=== PATIENT | male | born 2000 | race Caucasian/White ===

== ENCOUNTER 2023-10-03 13:34 | Emergency (ER) | payer OTHER, SELFPAY ==
[2023-10-03 13:52] VITALS: BP 128/76; PULSE 65; RESP 18; TEMP 36.2; O2SAT 99; BMI 37.9
--- NOTE | 2023-10-03 13:52 | ED.HA ---
HPI - Headache General Chief Complaint: Headache Stated Complaint: headache unable to function Time Seen by Provider: 10/03/23 14:05 Source: patient Mode of arrival: ambulatory Limitations: no limitations History of Present Illness HPI Narrative: 23 year old male without any significant past medical history presents to the emergency department for complaints of headache since July that is worse today. Reports pain in bilateral temples and sinuses. Describes pain as burning, throbbing, and a stabbing sensation in nostrils. Has been using an Neti-pot which helps. Related Data Previous Rx's ?Medication ?Instructions ?Recorded mometasone 50 mcg/actuation nasal 2 spray intranasal DAILY #17 grams 10/03/23 spray oxymetazoline 0.05 % nasal spray 2 spray intranasal Q12H PRN nasal 10/03/23 congestion 3 days #22 mL Allergies Allergy/AdvReac Type Severity Reaction Status Date / Time Penicillins [PCN] Allergy Unknown Verified 10/03/23 13:54 Review of Systems Review of Systems: Yes all other systems are reviewed and are negative [facility] Social History Social History Advance Directives: No Physical Exam Vital Signs: Vital Signs: Last Vital Signs Temp 97.1 F 10/03/23 14:09 Pulse 65 10/03/23 14:09 Resp 18 10/03/23 14:09 BP 128/76 10/03/23 14:09 Pulse Ox 99 10/03/23 14:09 O2 Del Method Room Air 10/03/23 14:09 BMI result Body Mass Index 37.9 Nursing notes and vital signs reviewed. GENERAL APPEARANCE: A&0 x 4, generally well appearing, no acute distress HENMT: Normal to inspection, atraumatic, face symmetrical. Normal external ears, nose, and oropharynx clear. EYE: PERRLA, EOM intact, structures appear normal NECK: Supple without stiffness or restricted ROM. HEART: Normal rate and regular rhythm, normal S1/S2, no M/R/G LUNGS: LS CTA, moving air well. Able to speak in complete sentences. No crackles, wheezes, or rhonchi auscultated BACK: No CVAT, no obvious deformity EXTREMITIES: Moving all extremities without difficulty. Normal capillary refill. NEUROLOGICAL: Alert and oriented, moving all 4 extremities with equal strength. CN not formally tested but appearing grossly intact. Observed to ambulate with normal gait. Cognition normal SKIN: Warm and dry without any lesions, rash, or visible sores Medical Decision Making Medical Decision Making MDM Narrative: Old records reviewed for previous imaging, lab studies, ECGs, and notes. Patient was assessed the emergency department with no acute distress or toxicity noted. Pt's symptoms appear consistent with headache from sinusitis. Afrin and flonase sent to pt's preferred pharmacy to further management and follow up with ENT. Patient is safe for discharge at this time with plan for [id number] Tylenol and/or NSAID such as ibuprofen or naproxen for fever/discomfort with dosing as per packaging. HPI, PE, diagnostics, and plan discussed with patient and family with no unanswered questions at this time. Strict return precautions given to return to the emergency department with new, worsening, or concerning emergent symptoms. Recommended to follow-up with there primary care provider in 24-48 hours for further treatment and management. Differential Diagnosis Differential Diagnoses: The differential diagnosis associated with the presentation includes but not limited to headache, cva, hemorrhage, tmj, trigeminal neuralgia, sinusitis, sinus infection. Discharge Plan Discharge Clinical Impression: Headache, Sinusitis Patient Disposition: Home, Self-Care Instructions: Sinusitis (ED), General Headache (ED) Prescriptions: New mometasone 50 mcg/actuation spray,non-aerosol 2 spray intranasal DAILY Qty: 17 0RF Rx Instructions: administer into each nostril oxymetazoline 0.05 % spray,non-aerosol 2 spray intranasal Q12H PRN (Reason: nasal congestion) 3 Days Qty: 22 0RF Rx Instructions: Do not use more than 3 days Referrals: Tal Sidhu [Physician] - Ian Vallejo MD [Physician] - Interventions: ED Discharge Assessment Last Done: 10/03/23 14:09 Discharge Date/Time: 10/03/23 14:10 Print Language: Emirati
[2023-10-03 14:09] VITALS: BP 128/76; PULSE 65; RESP 18; TEMP 36.2; O2SAT 99
== END 2023-10-03 14:10 | disposition home or self-care (01) ==
PROVIDERS: Emergency Provider Emergency Medicine; PCP Family Medicine
DX: J32.9 Chronic sinusitis, unspecified (principal); R51.9 Headache, unspecified
CPT/HCPCS: 99282; 99283

== ENCOUNTER 2024-01-21 09:32 | Outpatient (AMB) | payer OTHER, SELFPAY ==
--- NOTE | 2024-01-21 09:48 | MHC.PC.OV ---
Vital Signs 01/21/24 09:58 Height 5 ft 5 in Weight 224 lb 2 oz BMI 37.3 BP 110/76 Blood Pressure Location Rt brachial Position Sitting Respiration 16 Pulse 77 Pulse Source Pulse Oximeter Temp 98 F Temp Source Tympanic Pulse Oximetry (%) 97 Oxygen Delivery Method Room Air Intake Visit Reasons: Physical Intake Note: [facility] Allergies Penicillins [PCN] Allergy (Verified 01/21/24 09:52) Unknown Tobacco use date assessed: 01/21/24 Dental Screening Dental Screen Date: 01/21/24 Did you have a dental visit in the last 12 months?: No Did you have a dental problem in the last 6 months where you did not have access to dental care?: No Was dental information given to patient?: Yes HPI Physical HPI Details New Patient? ?? Prior PCP:?unknown Last office visit/CPE:? > 5 yrs Acute issue(s):? Upper resiratory problems. E[facility]: [facility]. Frequent sinus congestion & headaches. Has MRI scheduled. Headaches have resolved mostly but ears feel underwater . PMHx:? Asthma - resolved. SurgHx:? None. FHx:? Dad: HTN. Mom: Mental health. SocHx: Nonsmoker. EtOH: 2-3 x a month 5-8 [facility] Social History (Updated 01/21/24 @ 09:55 by Kaela Bradley) Housing: House Patient Tobacco Use Status: Never used Tobacco e-Cigarette/Vaping Use: Never Used Use of substances other than those prescribed or required for medical reasons: No service: No Current occupational status: employed Current occupation: [employer] Current occupational exposures/hazards: Yes Cognitive needs: No Hearing needs: No Vision needs: No Questionnaire PHQ-9 Over the last 2 weeks, how often have you been bothered by any of the following problems? 1. Little interest or pleasure in doing things: several days 2. Feeling down, depressed, or hopeless: not at all 3. Trouble falling or staying asleep, or sleeping too much: more than half the days 4. Feeling tired or having little energy: more than half the days 5. Poor appetite or overeating: more than half the days 6. Feeling bad about yourself - or that you are a failure or have let yourself or your family down: not at all 7. Trouble concentrating on things, such as reading the newspaper or watching television: not at all 8. Moving or speaking so slowly that other people could have noticed. Or the opposite - being so fidgety or restless that you have been moving around a lot more than usual: several days 9. Thoughts that you would be better off or of hurting yourself in some way: not at all Total score: 8 Depression Screening Interpretation: Positive Depression Screening Done: Yes 88170 - PHQ-9 Billing: Yes Source: Developed by Drs. Tavares Simpson, Penny Hawthorne, Román Ibarra and colleagues, with an educational opal from [employer]. Thrive Questionnaire Date Thrive assessed: 01/21/24 I am a: Patient What is your living situation today?: I have a steady place to live Within the past 12 months, did the food you bought not last and you didn't have the money to get more?: Never true Within the past 12 months, did you worry whether your food would run out before you got money to buy more?: Never true Do you have trouble paying for medicines?: No Do you have trouble getting transportation to medical appointments?: No Do you have trouble paying your heating and electricity bill?: No Do you have trouble taking care of your child, family member or friend?: No Do you have trouble with day-to-day activities such as bathing, preparing meals, shopping, managing finances, etc.?: No Are you currently unemployed and looking for a job?: No Are you interested in more education?: No Please select the resources that you would like help with: None Currently or been in a relationship where the following occur: No concerns reported THRIVE Score: 0 AUDIT C Alcohol Use Questionnaire (AUDIT-C) 1. How often do you have a drink containing alcohol?: 2-4 times a month 2. How many drinks containing alcohol do you have on a typical day when you are drinking?: 5 or 6 3. How often do you have six or more drinks on one occasion?: Monthly Total Score: 6 Score Reviewed/Action Taken: Yes BABITA-7 AMB Questionnaire BABITA-7 Date BABITA - 7 assessed: 01/21/24 Feeling nervous, anxious, or on edge: 3 = Nearly every day Not being able to stop or control worryin = Nearly every day Worrying too much about different things: 3 = Nearly every day Trouble relaxin = Nearly every day Being so restless that it is hard to sit still: 3 = Nearly every day Becoming easily annoyed or irritable: 3 = Nearly every day Feeling afraid as if something awful might happen: 1 = Several days Total BABITA-7 score (0-4 normal; 5-9 mild; 10-14 moderate; 15-21 severe): 19 Source: Developed by Drs. Tavares Simpson, Penny Hawthorne, Román Ibarra and colleagues, with an educational opal from [employer]. BABITA-7 Assessment Billing BABITA-7 Assessment Tool: BABITA-7 Assessment 97178 Review of Systems Const Denies chills, Denies fatigue, Denies fever(s), Denies headache(s) and Denies weakness ENT Denies dizziness and Denies headache(s) Card Denies chest pain, Denies lightheadedness, Denies dyspnea and Denies other (Palpitations) Resp Denies cough, Denies dyspnea, Denies wheezing and Denies other ( shortness of breath) Musc Denies numbness and Denies tingling Neuro Denies dizziness, Denies headache(s), Denies numbness, Denies tingling, Denies paresthesias and Denies weakness Psych Reports anxiety and Reports depression Endo Denies fatigue Aller/Immun Denies wheezing Physical exam (Primary Care) Vital Signs: Last Vital Signs Temp 98 F 01/21/24 09:58 Pulse 77 01/21/24 09:58 Resp 16 01/21/24 09:58 BP 110/76 01/21/24 09:58 Pulse Ox 97 01/21/24 09:58 Oxygen Delivery Method Room Air 01/21/24 09:58 BMI result Body Mass Index 37.3 Tobacco/Smoking Status: Tobacco use Status Tobacco use date assessed 01/21/24 01/21/24 09:56 Patient Tobacco Use Status Never used Tobacco 01/21/24 09:56 e-Cigarette/Vaping Use Never Used 01/21/24 09:56 PHQ-9: PHQ-9 Score PHQ-9: Total score 8 01/21/24 09:56 Depression Screening Interpretation: Positive Thrive Assessment: Date of Thrive Assessment Date Thrive assessed 01/21/24 01/21/24 09:56 Currently or been in a relationship where the following occur: No concerns reported Const General: no acute distress and well developed Nutritional Appearance: well nourished Orientation/consciousness: patient oriented x3 [facility] Head: Yes normocephalic and Yes atraumatic Eyes General: appearance normal, both eyes and all related structures Pupils: Equal, round and reactive pupils present EOM: EOMs intact bilaterally Resp Other: Coarse breath sounds Effort & Inspection: normal respiratory effort Auscultation: clear to auscultation bilaterally Cardio Rate: regular rate Rhythm: regular rhythm Heart sounds: S1 normal heart sound present, S2 normal heart sound present, no gallops, no murmurs and no rubs Neuro General: patient oriented x3 and gait normal Cranial nerves: Yes Equal, round and reactive pupils present Psych Affect: normal affect Assessment and Plan Assessment & Plan (1) Anxiety: Code(s): F41.9 - Anxiety disorder, unspecified Plan: Scoring?high?on?babita?7?but?patient?says?that?he?is?buying?a?house?and?getting??soon. He?can?let?me?know?if?he?wants?to?talk?about?therapy?or?medications?for?anxiety?but?at?present?he?does?not?seem?to?need?this (2) Frequent episodes of sinusitis: Code(s): J32.9 - Chronic sinusitis, unspecified Plan: Patient?is?followed?by?[facility]and?has?an?MRI?scheduled He?does?have?some?bulging?of?bilateral?TMs?with?what?appears?to?be?scant?pus?at?the?inferior?aspect?of?his?right?TM Will?give?him?a?script?for?a?nasal?steroid?again?to?try?to?decrease?inflammation?of?nasal?mucosa?and?help?drainage?of?Eustachian?tubes. Follow-up?with?ENT?as?recommended (3) Ear discomfort: Code(s): H92.09 - Otalgia, unspecified ear Plan: Appears?to?have?a?right?otitis?media Will?give?him?a?script?for Azithromycin (4) Headache: Code(s): R51.9 - Headache, unspecified Plan: Likely?related?to?the?above?frequent?episodes?of?sinusitis Has?MRI?scheduled?with?ENT Follow-up?with?ENT (5) Laboratory exam ordered as part of routine general medical examination: Code(s): Z00.00 - Encounter for general adult medical examination without abnormal findings Plan: Check?lab (6) Alcohol use: Code(s): Z78.9 - Other specified health status Orders: Orders Lipid Panel Today Z00.00 - Encounter for general adult medical examination without abnormal findings UA and rflx microscopic Today Z00.00 - Encounter for general adult medical examination without abnormal findings TSH reflex Free T4 Today Z00.00 - Encounter for general adult medical examination without abnormal findings HIV Ab/Ag Today Z11.3 - Encounter for screening for infections with a predominantly sexual mode of transmission Syphilis Screen Today Z11.3 - Encounter for screening for infections with a predominantly sexual mode of transmission Comprehensive [place]. Panel Fast Today Z00.00 - Encounter for general adult medical examination without abnormal findings Microalbumin, Random (w Creat) Today I10 - Essential (primary) hypertension CT NG by PCR Today Z11.3 - Encounter for screening for infections with a predominantly sexual mode of transmission Hepatitis B,C Profile Today Z11.3 - Encounter for screening for infections with a predominantly sexual mode of transmission Medications: New azithromycin (Zithromax Z-Marcos) take 500 mg today (day 1), then 250 mg for 4 days (days 2-5) PO 5 days 6 tabs 0RF azithromycin (Zithromax Z-Marcos) take 500 mg today (day 1), then 250 mg for 4 days (days 2-5) PO 5 days 6 tabs 0RF mometasone 50 mcg/actuation administer into each nostril 2 sprays intranasal DAILY 30 days PRN 17 grams 2RF nasal congestion Discontinued mometasone 50 mcg/actuation administer into each nostril Discontinued Reason: Patient Completed Course 2 sprays intranasal DAILY 17 grams 0RF oxymetazoline 0.05% Do not use more than 3 days Discontinued Reason: Patient Completed Course 2 sprays intranasal Q12H 3 days PRN 22 mL 0RF nasal congestion Coding Level of Care Code New Pt Level 3 (81653) Diagnoses Anxiety F41.9 Frequent episodes of sinusitis J32.9 Ear discomfort H92.09 Headache R51.9 Laboratory exam ordered as part of routine general medical examination Z00.00 Alcohol use Z78.9 Additional Codes BABITA-7 Assessment Billing - BABITA-7 Assessment Tool: BABITA-7 Assessment 30105 ([id number])
[2024-01-21 09:58] VITALS: BP 110/76; PULSE 77; RESP 16; TEMP 36.6; O2SAT 97; BMI 37.3
== END 2024-01-21 10:23 | disposition home or self-care (01) ==
PROVIDERS: PCP Family Medicine; Visit Provider Family Medicine
DX: F41.9 Anxiety disorder, unspecified (principal); J32.9 Chronic sinusitis, unspecified; H92.09 Otalgia, unspecified ear; R51.9 Headache, unspecified; Z00.00 Encounter for general adult medical examination without abnormal findings; Z78.9 Other specified health status
CPT/HCPCS: 96127; 99203

== ENCOUNTER 2024-01-21 10:36 | Outpatient (REF) | payer OTHER, SELFPAY ==
[2024-01-21 14:32] LABS: Appearance Urine Clear; Color Urine Yellow; Glucose Urine UA Negative (Negative); Leukocyte Esterase Urine Negative (Negative); Nitrite Urine Negative (Negative); Urine Blood Negative (Negative); Urine Ketones Negative (Negative); Urine Protein Negative (Neg-Trace)
[2024-01-21 14:56] LABS: Alanine Aminotransferase 25 U/L (0-40); Albumin Level 4.6 g/dL (3.5-5.0); Alkaline Phosphatase 88 U/L (39-117); Anion Gap 13 (12-20); Aspartate Amino Transferase 19 U/L (5-37); Bilirubin Total 0.4 mg/dL (0.0-1.0); Blood Urea Nitrogen 15 mg/dL (9-16); Carbon Dioxide 25 mmol/L (22-29); Chloride 105 mmol/L (96-108); Cholesterol 149 mg/dL (<200); Estimated Glomerular Filt Rate > 60; Glucose Fasting 87 mg/dL (60-99); HDL Cholesterol 46 mg/dL (>40); LDL Cholesterol Calculated 85 mg/dL (<100); Potassium 4.1 mmol/L (3.3-5.1); Sodium 139 mmol/L (135-145); Total Protein 7.4 g/dL (6.5-8.0); Triglycerides 93 mg/dL (<150)
[2024-01-21 15:02] LABS: Creatinine Urine 133.15 mg/dL; Microalbumin Urine < 5.0 mg/L
[2024-01-21 15:13] LABS: TSH reflex Free T4 0.91 uIU/mL (0.32-4.0)
[2024-01-22 08:02] LABS: HBS Num1 3.32 mIU/mL (0-7.99); HBc Num1 0.08 S/CO (0.00-0.79); HBsAGNum1 0.29 S/CO (0.00-0.99); HIV AB/AG Nonreactive (Nonreactive); HIV Num 1 0.05 S/CO (0.00-0.99); Hepatitis B Core Antibody Nonreactive (Nonreactive); Hepatitis B Surface Antigen Negative (Negative); ~HepC Num1 0.08 S/CO (0.00-0.79); ~Hepatitis B Surface Antibody NONREACTIVE (Nonreactive); ~Hepatitis C Antibody Nonreactive (Nonreactive)
[2024-01-22 08:12] LABS: Syphilis Screen Nonreactive (Nonreactive)
== END 2024-01-21 10:37 | disposition home or self-care (01) ==
LOC: HO.WFDLDS 10:36
PROVIDERS: Visit Provider Family Medicine
DX: Z00.00 Encounter for general adult medical examination without abnormal findings (principal); Z11.4 Encounter for screening for human immunodeficiency virus [HIV]; Z11.3 Encounter for screening for infections with a predominantly sexual mode of transmission; I10 Essential (primary) hypertension
CPT/HCPCS: 36415; 80053; 80061; 81003; 82043; 82570; 84443; 86704; 86706; 86780; 86803; 87340; 87389

== ENCOUNTER 2024-07-23 09:06 | Outpatient (AMB) | payer OTHER, SELFPAY ==
--- NOTE | 2024-07-23 09:26 | MHC.PC.OV ---
Vital Signs 07/23/24 09:33 Height 5 ft 5 in Weight 229 lb 4 oz BMI 38.1 BP 110/70 Blood Pressure Location Lt brachial Position Sitting Respiration 12 Pulse 80 Pulse Source Pulse Oximeter Temp 98.0 F Temp Source Oral Pulse Oximetry (%) 97 Oxygen Delivery Method Room Air Intake Visit Reasons: Extended exam with f/u labs and health maint. 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 HPI Details 24 y/o male presents for an extended exam with f/u labs. Labs drawn 01/21/24. Reviewed labs with pt. Triglycerides 93. TC 149. LDL 85. HDL 46. His labs were fine. He notes vision changes, R eye. Has been following up with an eye doctor. Reports ongoing complaints of TMJ. [facility] Surgical History History of nasal septoplasty Social History Housing: House Patient Tobacco Use Status: Current everyday Tobacco user Tobacco use type: Smokeless Tobacco e-Cigarette/Vaping Use: Never Used service: No Current occupational status: employed Current occupation: [employer] Current occupational exposures/hazards: Yes Cognitive needs: No Hearing needs: No Vision needs: No Questionnaire PHQ-9 Over the last 2 weeks, how often have you been bothered by any of the following problems? 1. Little interest or pleasure in doing things: more than half the days 2. Feeling down, depressed, or hopeless: several days 3. Trouble falling or staying asleep, or sleeping too much: several days 4. Feeling tired or having little energy: several days 5. Poor appetite or overeating: several days 6. Feeling bad about yourself - or that you are a failure or have let yourself or your family down: not at all 7. Trouble concentrating on things, such as reading the newspaper or watching television: several days 8. Moving or speaking so slowly that other people could have noticed. Or the opposite - being so fidgety or restless that you have been moving around a lot more than usual: several days 9. Thoughts that you would be better off or of hurting yourself in some way: not at all Total score: 8 Depression Screening Interpretation: Positive Depression Screening Done: Yes 34742 - PHQ-9 Billing: Yes Source: Developed by Drs. Tavares Simpson, Penny Hawthorne, Román Ibarra and colleagues, with an educational opal from [employer]. Thrive Questionnaire Date Thrive assessed: 07/23/24 I am a: Patient What is your living situation today?: I have a steady place to live Within the past 12 months, did the food you bought not last and you didn't have the money to get more?: Never true Within the past 12 months, did you worry whether your food would run out before you got money to buy more?: Never true Do you have trouble paying for medicines?: No Do you have trouble getting transportation to medical appointments?: No Do you have trouble paying your heating and electricity bill?: No Do you have trouble taking care of your child, family member or friend?: No Do you have trouble with day-to-day activities such as bathing, preparing meals, shopping, managing finances, etc.?: No Are you currently unemployed and looking for a job?: No Are you interested in more education?: No Please select the resources that you would like help with: None Currently or been in a relationship where the following occur: No concerns reported THRIVE Score: 0 AUDIT C Alcohol Use Questionnaire (AUDIT-C) 1. How often do you have a drink containing alcohol?: 2-3 times a week 2. How many drinks containing alcohol do you have on a typical day when you are drinking?: 5 or 6 3. How often do you have six or more drinks on one occasion?: Monthly Total Score: 7 Score Reviewed/Action Taken: Yes BABITA-7 AMB Questionnaire BABITA-7 Date BABITA - 7 assessed: 07/23/24 Feeling nervous, anxious, or on edge: 1 = Several days Not being able to stop or control worryin = Several days Worrying too much about different things: 1 = Several days Trouble relaxin = Several days Being so restless that it is hard to sit still: 1 = Several days Becoming easily annoyed or irritable: 1 = Several days Feeling afraid as if something awful might happen: 1 = Several days Total BABITA-7 score (0-4 normal; 5-9 mild; 10-14 moderate; 15-21 severe): 7 Source: Developed by Drs. Tavares Simpson, Penny Hawthorne, Román Ibarra and colleagues, with an educational opal from [employer]. BABITA-7 Assessment Billing BABITA-7 Assessment Tool: BABITA-7 Assessment 66132 Review of Systems Const Denies chills, Denies fatigue, Denies fever(s), Denies headache(s) and Denies weakness Eyes Denies change in vision ENT Denies dizziness, Denies headache(s), Denies hearing loss, Denies nasal congestion, Denies sinus pain, Denies sinus pressure and Denies sore throat Card Denies chest pain, Denies lightheadedness, Denies dyspnea and Denies other (palpitations) Resp Denies cough, Denies dyspnea and Denies wheezing GI Denies abdominal pain, Denies melena, Denies hematochezia, Denies change in bowel habits, Denies dyspepsia and Denies nausea Denies hematuria and Denies dysuria Musc Denies abnormal gait, Denies myalgias, Denies arthralgias, Denies numbness and Denies tingling Skin/Breast Denies rash, Denies unusual bruising and Denies wounds Neuro Denies abnormal gait, Denies dizziness, Denies headache(s), Denies memory loss, Denies numbness, Denies Sensory deficit (Neuro), Denies tingling and Denies weakness Psych Denies anxiety, Denies depression and Denies memory loss Endo Denies cold intolerance, Denies fatigue, Denies heat intolerance, Denies polydipsia and Denies polyuria Avila/Lymph Denies easy bleeding and Denies easy bruising Aller/Immun Denies wheezing Physical exam (Primary Care) Vital Signs: Last Vital Signs Temp 98.0 F 07/23/24 09:33 Pulse 80 07/23/24 09:33 Resp 12 07/23/24 09:33 BP 110/70 07/23/24 09:33 Pulse Ox 97 07/23/24 09:33 Oxygen Delivery Method Room Air 07/23/24 09:33 BMI result Body Mass Index 38.1 Tobacco/Smoking Status: Tobacco use Status Tobacco use date assessed 07/23/24 07/23/24 09:36 Patient Tobacco Use Status Current everyday Tobacco 07/23/24 09:36 Tobacco use type Smokeless Tobacco 07/23/24 09:36 e-Cigarette/Vaping Use Never Used 07/23/24 09:36 PHQ-9: PHQ-9 Score PHQ-9: Total score 8 07/23/24 09:43 Depression Screening Interpretation: Positive Thrive Assessment: Date of Thrive Assessment Date Thrive assessed 07/23/24 07/23/24 09:36 Currently or been in a relationship where the following occur: No concerns reported Const General: no acute distress, well developed, alert and awake Nutritional Appearance: well nourished Orientation/consciousness: patient oriented x3 HENMT Head: Yes normocephalic and Yes atraumatic Ears: hearing grossly normal bilaterally and TM's normal bilaterally General nose exam: Normal external nose present and Normal nares present Mouth: Normal oral and palatal mucosa present and moist mucous membranes Teeth and gingiva: dentition normal Throat: Yes posterior oropharynx normal Eyes General: appearance normal, both eyes and all related structures Pupils: Equal, round and reactive pupils present and Pupil accommodation reflex normal EOM: EOMs intact bilaterally Neck Neck: Yes normal visual inspection, Yes no lymphadenopathy and Yes trachea midline Thyroid: Thyroid normal Carotids: no bruits Lymphatic: no lymphadenopathy noted Chest Chest palpation & inspection: normal inspection of the chest Resp Effort & Inspection: normal respiratory effort Auscultation: clear to auscultation bilaterally Cardio Rate: regular rate Rhythm: regular rhythm Heart sounds: S1 normal heart sound present, S2 normal heart sound present, no gallops, no murmurs and no rubs Bruits: no abdominal aortic bruits and no carotid bruits GI Palpation (GI): No Abdominal aortic bruit present, Soft to palpation, nontender, No hepatosplenomegaly present and No Rebound tenderness present Auscultation: normal bowel sounds General: Yes no CVA tenderness Back/Spine/Pelvis Back: no CVA tenderness Cervical Spine: cervical ROM normal and No Cervical spine tenderness Thoracic/Lumbar Spine: thoraco-lumbar ROM normal, No pain with thoraco-lumbar ROM, No thoracic spinal tenderness and No lumbar spinal tenderness Skin Lesions: no lesions Rashes: no rashes Trauma: no lacerations or abrasions Wounds: no wounds Nails: normal Neuro General: patient oriented x3 Cranial nerves: Yes Equal, round and reactive pupils present Cognition (Neuro): normal cognition Gait exam (Neuro): Normal gait present Motor exam (neuro): 5/5 motor strength present throughout Sensory Exam: No Sensory deficit (Neuro) Deep tendon reflexes (DTR's): Right patellar reflex intensity grade: 2+ and Left patellar reflex intensity grade: 2+ Extrem General: Yes normal to inspection and No edema Psych Appearance: grossly normal Affect: normal affect Attitude: cooperative Thought process: Normal thought process present Coding Level of Care Code Est Pt Level 4 (63566) Diagnoses Vision changes H53.9 Sinusitis J32.9 TMJ (dislocation of temporomandibular joint) S03.00XA Adult general medical exam Z00.00 Additional Codes BABITA-7 Assessment Billing - BABITA-7 Assessment Tool: BABITA-7 Assessment 86904 ([id number]) PHQ-9 - 89163 - PHQ-9 Billing: Yes ([id number]) Assessment & Plan Assessment & Plan (1) Vision changes: Code(s): H53.9 - Unspecified visual disturbance Category: Medical Plan: Patient?notes?vision?change?in?right?eye.??He?is?already?followed?by?an lawn mower repairer. Advised?to?call?his?eye?doctor. (2) Sinusitis: Code(s): J32.9 - Chronic sinusitis, unspecified Category: Medical Plan: Scheduled?for?septoplasty (3) TMJ (dislocation of temporomandibular joint): Code(s): S03.00XA - Dislocation of jaw, unspecified side, initial encounter Category: Medical Plan: Ongoing?TMJ. He?says?his?dentist?and?ENT?presume?that?some?of?this?may?be?secondary?to?his?chronic?sinusitis He?is?scheduled?for?septoplasty?with?ENT I?advised?that?if?he?is?still?having?the?issue?after?is?septoplasty?he?should?follow-up?with?them?and?let?know (4) Adult general medical exam: Code(s): Z00.00 - Encounter for general adult medical examination without abnormal findings Category: Medical Plan: 24-year-old?male?presents?for extended?exam. Encouraged?healthy?diet?with?active?lifestyle?and?plenty?of?exercise
[2024-07-23 09:33] VITALS: BP 110/70; PULSE 80; RESP 12; TEMP 36.7; O2SAT 97; BMI 38.1
--- OUTSIDE RECORDS SUMMARY | 2024-07-23 09:45 | XMS_ITS | Data Portability ---
Author Organization [place] - [facility], Allergy Address [address] [address] Care Team Providers Care Application Analyst Name Role Phone NAYE TERRY Primary Care Provider [phone] Assessment Encounter Date Assessment Date Assessment LastModified by Organization Details LastModified Time 11/15/2023 11/15/2023 23 year old male with four months of facial pain centered around the eyes, more predominant on the right side. Ear examination toady is normal. TMJs are normal to palpation. He has a right septal deviation. Evidence of moderate rhinitis bilaterally. Nasal endoscopy shows clear rhinorrhea bilaterally, without evidence of infection. No nasal polyps. We discussed a differential diagnoses including sinusitis, allergies, or other headache syndrome such as migraine. I would recommend a CT scan of the sinuses and allergy testing. I have prescribed a short course of oral steroids to hopefully help symptomatically. He will follow up after the testing for review and we will plan on an audiogram at that time for his ear complaints. [email or web address] Not available 11/15/2023 12:10:25 12/19/2023 12/19/2023 23-year-old male with headaches and nasal congestion. Here today to review allergy testing and for an audiogram given complaint of concurrent ear blockage. Allergy testing showed moderate reactions to Maple and cedar trees, as well as two of the molds. Audiogram demonstrates normal hearing and normal tympanometry bilaterally. No significant evidence of sinusitis on exam. We will proceed with the CT scan as planned. I am thankful his headaches have improved since the steroids. We discussed that I would not recommend antibiotic treatment for his sinusitis symptoms until they have been present for at least two weeks, he develops fever, or symptoms seem to be significantly worsening. He understands. We can plan on Phone follow up for the CT results. jada Not available 12/19/2023 16:34:25 04/23/2024 04/23/2024 23 year old male with continued headaches and facial pressure, more predominant on the right side. He had a CT sinus that was normal with the exception of a right sided deviated septum with impingement on the inferior turbinate. Allergy testing showed moderate reactions to trees and mold. At this time, I would recommend starting a daily allergy medication and a nasal steroid spray. We discussed that his headaches are not sinus related and reviewed other differential diagnoses including TMJ, tension headache, migraine. I would recommend referral to a Neurologist for further evaluation and treatment. We also discussed the possibility of discussing septoplasty with again, as this can cause headaches in some more rare circumstances. jada Not available 04/23/2024 09:44:45 06/09/2024 06/09/2024 24-year-old male with fullness popping and crackling in his ears. He does have right TMJ tenderness and a history of bruxism. The last year of his life has been quite stressful with buying a house and getting . There is no evidence of any middle ear dysfunction. His prior audiogram was normal he declines any additional testing. He is bothered by right sided nasal obstruction. He has significant septal deviation to the right with compensatory turbinate hypertrophy on the left. There is underlying allergy which seems to be controlled with fluticasone and loratadine. We discussed proceeding with septoplasty and turbinate reduction. 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 Referral neurologi st referral - Referral for headache. Thank you. 2023 [facility], [address] [place], [address], 04/23/2024 11:34:14 Procedures allergy testing, skin prick (PROC) 2023 024 [email or web address] Not available 12/03/2023 10:10:55 intraderm al allergy skin testing (PROC) 2023 024 skorze Not available 12/03/2023 10:11:18 pulmonary function test procedure (PROC) 2023 024 [email or web address] Not available 12/03/2023 10:11:09 pulse oximetry (PROC) 2023 024 skorze Not available 12/03/2023 10:11:30 Surgeries septoplas ty and turbinate reduction (SURG) 2024 025 [email or web address] Not available 06/09/2024 12:12:[address], sinuses, w/o contrast [email or web address] [place] [address] [facility], [address] [place], [address], 11/15/2023 12:45:22 Medication Orders fluticaso ne propionat e 50 mcg/actua tion nasal spray,khloe pension 2023 024 [id number], [address] [place], [address], 04/23/2024 09:45:53 methylpre dnisolone 4 mg tablets in a dose pack 2023 024 [facility], [address] [place], [address], 12/03/2023 09:13:12 Patient TargetsNo targets recorded. Patient Instructions Encounter Date Encounter Id Patient Instructions Last Modified By Organization Details Last Modified Time 12/03/2023 [id number] Nursing Documentation for Allergy Testing: Ordering Provider {{Dr. Cuong Padilla* Dr. Francisco Elam}} Weight:221lbs:??kg : ?? PFT {{Yes* no}} With Bronchodilator {{Yes no*}} Dr. linton needed to proceed with allergy testing? {{Yes No*}} {{Dr. Cuong Elam}} ok'd testing {{Yes No Pulmonary Clearance PCP Clearance RAST}}Hi story of Asthma:{{Yes* No}} Asthma Meds: none ??Last used:?? Asthma exacerbated by: ?? Chance that : {{Yes No Not Sure N/A*}} Fear of needles: {{Yes No*}} Regular medications reviewed in Computer: {{Yes* No}} Medication allergies: {{Reviewed* NKDA}} Antihistamine use: {{Yes* No}} Medications used: cesilia ?? Food Allergies: no ?? Any foods make your mouth feeling itchy: {{Yes No*}} If yes: ?? History of severe reaction where had to go to ER? {{Yes No*}} If yes details: ?? Type of heat in home: {{Baseboard Forced Air Radiator* othe r}} Pets: {{Yes No*}} If yes: ?? Smoker: {{Yes Current Never Form er*}} If former smoker-how much ??10 / day for how long ??1 year When quit ??8 years ago years ago Smoking now-how much ?? /day for how long ?? 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 Finishing up process to buy a house and has a wedding next month. 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 Symptoms having: {{Congestion Post Nasal Drip Headache Runn y Nose Cough Other*} } If other: ear popping, tmj, burning sinus ?? Frequency {{Seasonally Year Round*}} Spirometry Contraindications: Heart attack in the last 3 months: {{Yes No*}} Major surgery in last 3 months: {{Yes No*}} Detached retina(serious eye issues) in last 2 months: {{Yes No*}} Hospitilization in last month: {{Yes No*}} Proceed with PFT {{Yes* No}} approval needed: {{Yes No*}} Nursing Notes: Pt tolerated test well {{Yes* No}} Benadryl cream to test sites {{Yes No*}} Patient became syncopal-placed in supine position {{Yes No*}} Large reactions to MQT, reschedule IDT for a different date {{Yes No*}} Other: ?? Written by: {{JUANCARLOS Lemon, ROSETTE* Dasia Llamas}} [email or web address] Not available 12/03/2023 09:53:18 Reason for Referral Neurologist Referral for Hea dache Referral for headache. Thank you. Referring Physician: Araceli Hu, Otolaryngology, Encounter Date: 04/23/2024 Results Created Date Observation Date Name Description Value Unit Range Abnormal Flag Note LastModifiedBy Organization Detail LastModifiedTime 12/19/19 24 12/19/2023 audio gram No observ ation record ed. [email or web address] Not Available 2023 16:32:31 01/22/20 24 10/27/2020 imagi ng/di agnos tic resul t No observ ation record ed. [email or web address] Not Available 22:31:15 Result Notes None recorded. Problems Name Problem SNOMED Code Status Onset Date Resolution Date Notes Provider Name and Address Organization Details Recorded Time Pain of right eye 00877037740 9102 Active 2020 Ocular pain, right eye; Note: Date Diagnosed : 10/17/2020 2:36 PM (H57.11) Not Available [facility] 4 03:27:49 Deviated nasal septum 555863662 Active 2020 Deviated nasal septum; Note: Date Diagnosed : 10/17/2020 2:36 PM (J34.2) Not Available [facility] 4 03:27:49 Nasal congestio n 39954692 Active 2020 Nasal congestio n; Note: Date Diagnosed : 10/17/2020 2:36 PM (R09.81) Not Available [facility] 4 03:27:49 Headache 81741967 Active 2023 ARACELI HU PA-C [address], [place], [address] , [place] - [facility] 4 12:05:47 Chronic rhinitis 91124444 Active 2023 ARACELI HU PA-C [address], [place], [address] , [place] - [facility] 4 12:05:56 Non-aller gic rhinitis 18847431536 1 Active 2023 ARACELI HU PA-C [address], [place], [address] , [facility] - [facility] 4 12:06:12 Seasonal allergic rhinitis 407400849 Active 2023 ARACELI HU PA-C [address], [place], [address] , [facility] - [facility] 4 12:06:12 Allergic rhinitis 90489340 Active 2023 ARACELI HU PA-C [address], [place], [address] , [facility] - [facility] 4 12:06:12 Bilateral disorder of Eustachia n tubes 70195414422 81220 Active 2023 ARACELI HU PA-C [address], [place], [address] , [place] - [facility] 4 16:34:10 Pain of right temporoma ndibular joint 07799887887 025052 Active 2024 ANTONIA FRANCO MD [address], [place], [address] , [facility] 5 08:54:55 Problem Notes None recorded. Procedures Surgical History Date Name Laterality Status Provider Name and Address Organization Details Recorded Time 4 Air & Speech Audio with Tymps (72275, 86664 & 95029) completed KATE ADAMSON MA, CCC-A [address], [place], [address], [facility] 12/19/2023 13:40:38 4 Allergy Testing-Full completed MADDIE ALLEN, RMA [address] [facility], [place], [address], [facility] 12/03/2023 10:08:42 4 JMSNasal/Sinus Endoscopy completed ARACELI HU PA-C [address] [facility], [place], [address], [facility] 11/15/2023 12:05:41 Imaging Results Imaging Date Name Status LastModified by Organiz ation Details LastModified Time 12/19/2023 audiogram completed [email or web address] Information no t available 12/19/2023 16:32:31 10/27/2020 imaging/diagno stic result completed [email or web address] Information not available 01/22/2024 22:31:15 Procedure Notes None recorded. Medical Equipment None Reported. Allergies Allergen ID Allergen Name Allergen Category Reaction Reaction Severity Criticality Documentation Date Start Date Code Code System Note Provider Name and Address Organization Details Recorded Time 75670 Product containin g penicilli n (product) medicatio n other Not available Not available 10/15/2023 76902 8001 SNOMED React ion: other react ion, Unkno wn; Not Available [facility] 00:48:21 Medications Name Sig Start Date Stop Date Status Note LastModified by Organization Details LastModified Time azithromyci n 250 mg tablet TAKE 2 TABLETS ON FIRST DAY , THEN 1 TABLET DAILY FOR 4 DAYS 06/09 completed Not Available Not Available Not Available fexofenadin e 180 mg tablet TAKE ONE TABLET BY MOUTH EVERY DAY active Not Available Not Available No t Available mometasone 50 mcg/actuati on nasal spray INSTILL 2 SPRAYS INTO EACH NOSTRIL DAILY NEEDED FOR NASAL CONGESTIO N FOR 30 DAYS active Not Available Not Available No t Available methylpredn isolone 4 mg tablets in a dose pack TAKE SIX TABLETS FOR 1 DAY, THEN FIVE TABLETS FOR 1 DAY, THEN FOUR TABLETS FOR 1 DAY,THEN THREE TABLETS FOR 1 DAY, THEN TWO TABLETS FOR 1 DA 12/02 completed Not Available Not Available Not Available fluticasone propionate 50 mcg/actuati on nasal spray,suspe nsion 2 sprays in each nostril once daily 2023 active Not Available Not Available Not Avai lable Vitals Date Recorded Body height Body mass index (BMI) Body weight Oxygen saturation Oxygen saturation in Arterial blood by Pulse oximetry Heart rate Systolic blood pressure Diastolic blood pressure Provider Name and Address Organization Details Last Updated DateTime 4 165.1 cm 36.8 kg/m2 616929. 91 g 98 % 98 % 79 /min 120 mm[Hg] 80 mm[Hg] [address], [address] 09:12:40 Date Recorded Body height Body mass index (BMI) Body weight Provider Name and Address Organization Details Last Updated DateTime 04/23/2024 165.1 cm 36.8 kg/m2 177236.91 g Smitha Prescott [facility] 04/23/2024 08:58:38 Date Recorded Body height Body mass index (BMI) Body weight Provider Name and Address Organization Details Last Updated DateTime 06/09/2024 165.1 cm 36.1 kg/m2 85554.54 g Javier Rivas [facility] 06/09/2024 08:31:49 Date Recorded Body height Body mass index (BMI) Body weight Provider Name and Address Organization Details Last Updated DateTime 11/15/2023 165.1 cm 36.6 kg/m2 87818.32 g Laurence Mckeon [facility] 11/15/2023 11:05:39 Social History None recorded. Functional Status None recorded. Mental Status None recorded. Family History Nothing Reported. Medical History No medical history recorded. Past Encounters Encounter ID Performer Location Encounter Start Date Encounter Closed Date Diagnosis/Indication Diagnosis SNOMED-CT Code Diagnosis ICD10 Code Diagnosis Note [id number] ARACELI HU PA-C [facility] on [address] [place] [phone] 11/15/2023 10:57:34 11/15/2023 12:45:22 Deviated nasal septum 161663767 J34.2 Nasal congestion 3560137 0 R09.81 Headache 67054856 R51.9 Chronic rhinitis 4770707 6 J31.0 Allergic rhinitis 212696 04 J30.9 Non-allergic rhinitis 31 04152391 01 J31.0 Seasonal a llergic rhinitis 222210546 J30.2 [id number] [facility], COUNT INCLUDES THE [facility] Allergy [address] [place] [phone] 12/03/2023 09:02:20 12/03/2023 11:22:28 Allergic rhinitis 14933948 J30.9 [id number] ARACELI HU PA-C [facility] on [address] [place] [phone] 12/19/2023 15:43:58 12/20/2023 08:56:18 Allergic rhinitis 47543935 J30.9 Bilateral disorder of Eustachian tubes 7170566783 488689 H69.93 Normal hearing bilaterall y with excellent speech clarity. Normal middle ear pressure and compliance for both ears. Pain in face 79397512 R5 1.9 [id number] ARACELI HU PA-C [facility] on [address] [place] [id number] 04/23/2024 08:47:58 04/23/2024 09:35:53 Headache 33551651 R51.9 Allergic rhinitis 762367 04 J30.9 Deviated nasal septum 12 6189251 J34.2 [id number] ANTONIA FRANCO MD [facility] on [address] [place] [id number] 06/09/2024 08:20:58 06/09/2024 08:58:07 Deviated nasal septum 798028652 J34.2 Informed ConsentSur gical options and alternativ es were discussed in detail today. Specifical ly, Informed Consent for Septoplast yThe surgical risks, of septoplast y including, though not limited to, loss of smell and taste, bleeding, incomplete relief of nasal obstructio n, atrophic rhinitis, tooth or lip numbness, infection and the risk of septal perforatio n with its resultant whistling were discussed. In addition, I explained that sometimes the nasal appearance can change and that chronic sinusitis can result. Informed Consent for Turbinate ReductionT he surgical risks, of turbinate reduction, including, though not limited to, loss of smell and taste, bleeding, Empty Nose Syndrome, incomplete relief of nasal obstructio n, atrophic rhinitis, tooth or lip numbness, infection and the risk of septal perforatio n with its resultant whistling were discussed. In addition, I explained that sometimes the nasal appearance can change and that chronic sinusitis can result. We also discussed the anesthetic risks. All questions were answered and patient/gu ardian fully understand s the risks, benefits and alternativ es as well as the limitation of surgery . This will be scheduled at a mutually convenient time in the near future. Preoperati ve and postoperat wendy instructio ns were provided as well as a sheet outlining the potential risks of surgery. Patient/gu ardian will follow up post operativel y as scheduled or earlier for intercurre nt problems. Allergic rhinitis 938966 04 J30.9 Pain of ri ght temporomandibular joint 7028385389 2403927 M26.621 Health Concerns Section Related Observation LastModified by Organization Detai ls LastModified Time None Recorded Concern Status LastModified by Organization Details LastModified Time None Recorded Advance Directives Directive None Recorded Payers Encounter Date Sequence Insurance Name Policy Number Policy Quiros Covered Member ID Quiros Member ID Guarantor Name 11/15/2023 1 [facility] [employer] [facility] (MEDICAID HMO) [id number] Kyle Flores [id number] Kyle Flores 12/03/2023 1 [facility] [employer] (MEDICAID HMO) [id number] Kyle Flores [id number] Kyle Flores 12/19/2023 1 [facility] (MEDICAID HMO) [id number] Kyle Flores [id number] Kyle Flores 04/23/2024 1 [facility] (MEDICAID HMO) [id number] Kyle Flores [id number] Kyle Smileys 06/09/2024 1 [facility] (MEDICAID HMO) [id number] Kyle Flores [id number] Kyle Flores Notes Date Note Type Note Provider Name and Address Organization Details Recorded Time 11/15/2023 text/html 23 year old male seen by in 2020 for evaluation of eye pressure. CT scan at that time was unremarkable for sinus disease, did show a deviated septum. He was recommend to try Flonase. He did not return for follow up. He is here today with about four months of headaches and facial pain. The headaches are centered around the eyes, more predominant on the right side. Also reports ear pressure and the need to frequently pop his ears by opening and closing his jaw. He feels his hearing is compromised as a result. He has had some relief of symptoms with Cesilia. He was getting the headaches every day, but now 1-2 times per week. He is having light sensitivity as well. Notes sense of smell is somewhat muted, but this has been more chronic. He uses a sinus rinse daily and nasal saline during the day. He notes that if he does not, he will have thick yellow drainage from his nose and eye drainage. He is not using any other nasal sprays at this time. Reports feeling as though his nose was burning from Flonase in the past. He has not had any recent antibiotics, reports in the past they did not work well for him and he has had side effects. No personal or family history of headache previously. He had asthma when he was younger, but does not any more. He has not seen an eye doctor of late, last exam was in 2020 when he was referred to the for the eye pressure. No known history of bruxism. He has not been to the dentist in quite sometime. ARACELI HU PA-C [address] [place] [address], [place], [address], [place] [facility] [place] [address]/14/2024 12:10:55 12/19/2023 text/html 23-year-old male presents today to follow up allergy testing results and for an audiogram. He was seen one month ago with concerns for facial pain, headache, nasal congestion, and ear blockage. He was advised to undergo allergy testing and a CT scan of his sinuses. He has not yet had the CT. He was prescribed a medrol dose pack at his last visit. He reports this did help his headaches and he really hasn't had any in the last month. Reports two days of increased nasal drainage and feeling of fluid in the ears. His ears continue to pop frequently. ARACELI HU PA-C [address] [facility],[address], [address], [facility] - [facility] 12/19/2023 16:34:42 04/23/2024 text/html 23 year old male who I saw over the summer for predominantly right sided headaches.Symptoms improved with a medrol dose pack. He had a CT sinus that was normal with the exception of a right sided deviated septum with impingement on the inferior turbinate. Allergy testing showed moderate reactions to trees and mold. He continues to complain of facial pressure, more predominant on the right side. He continues to complain of ear popping. Not taking allergy medication currently. He is using a scallop cutter. ARACELI HU PA-C [address] [facility],[address], [address], [place] - [facility] 04/23/2024 09:46:01 06/09/2024 text/html Over 1 year ago he had issues with right temporal headache that have recently improved (March). Has popping in the ears and fullness. Crackling when pressing on temples. Wearing mouth guard since January. Feels hearing decreased. Prior audio normal Notes right nasal congestionPrior skin testing showed moderate reactivity to a couple of molds and red cedar and maple pollen NOSE=60 ANTONIA ELAM MD [address] [facility],[address], [address], [place] - [facility] 06/09/2024 08:56:24
== END 2024-07-23 09:55 | disposition home or self-care (01) ==
PROVIDERS: PCP Family Medicine; Visit Provider Family Medicine
DX: H53.9 Unspecified visual disturbance (principal); J32.9 Chronic sinusitis, unspecified; S03.00XA Dislocation of jaw, unspecified side, initial encounter; Z00.00 Encounter for general adult medical examination without abnormal findings

== ENCOUNTER → 2024-07-23 09:06 | Outpatient (BNVA) | payer OTHER, SELFPAY | PROVIDERS: PCP Family Medicine; Visit Provider Family Medicine | DX: Z00.01 Encounter for general adult medical examination with abnormal findings (principal); H53.9 Unspecified visual disturbance; S03.00XA Dislocation of jaw, unspecified side, initial encounter | CPT/HCPCS: 96127; 99212 ==